=== PATIENT | female | born 1990 | race African-American/Black ===

== ENCOUNTER 2024-04-06 12:18 | Emergency (ER) | payer MEDICAID, SELFPAY ==
--- NOTE | 2024-04-06 12:21 | ED_ITS ---
HPI - General Adult General Chief complaint: Recheck/Abnormal Lab/Rx Stated complaint: abnormal lab sickle cell Related Data Allergies Allergy/AdvReac Type Severity Reaction Status Date / Time No Known Allergies Allergy Verified 04/06/24 12:25 [facility] Social History Social History Advance Directives: No Advance Directives Information Provided: No Physical Exam ED Vital Signs: Vital Signs - 24 hr 04/06/24 12:25 Temperature 98.9 F Pulse Rate 76 Respiratory Rate 16 Blood Pressure 114/72 Pulse Oximetry 97 Oxygen Delivery Method Room Air BMI result Body Mass Index 21.9 Course Course Course Narrative: This is a Rapid Medical Examination (RME) performed by Keren Reeder PA-C in triage. Full HPI, ROS, assessment and treatment plan per primary provider in the Main ED. 34 yo lithuanian speaking female herefor abnormal labs. PCP sent for blood work yesterday. she was contact with results of anemia and was advised to come to the ED. hx of sickle cell anemia. he told me my red cells are . no complaints at present. she is well appearing. abd soft/ nd/nt. no pallor noted. Plan: labs, type and screen ordered Reevaluation(s) Reevaluation #1: Patient left the ED without completing treatment. Medical Decision Making Lab Data 04/06/24 12:49 04/06/24 12:49 Labs: Lab Results 04/06/24 Range/Units 12:49 WBC 7.1 (4.8-10.8) X10*3/uL RBC 2.86 L (4.20-5.50) X10*6/uL Hgb 9.8 L (12.0-16.0) g/dl Hct 26.4 L (37.0-47.0) % MCV 92.3 (80.0-98.0) fL MCH 34.3 H (27.0-33.0) pg MCHC 37.1 H (31.0-35.0) g/dl RDW 15.9 (11.0-16.0) % Plt Count 241 (160-400) X10*3/uL MPV 11.5 (9.4-12.3) fL Immature Gran % (Auto) Cancelled Neut % (Auto) Cancelled Lymph % (Auto) Cancelled Carver % (Auto) Cancelled Eos % (Auto) Cancelled Baso % (Auto) Cancelled Lymph # (Auto) Cancelled Carver # (Auto) Cancelled Eos # (Auto) Cancelled Baso # (Auto) Cancelled Abs Immat Gran (auto) Cancelled Absolute Neuts (auto) Cancelled Absolute Nucleated RBC 0.120 H (0.0-0.012) X10*3/uL Nucleated RBC % (auto) 1.7 H (0.0-0.2) /100WBC Neutrophils % (Manual) 41 L (45-73) % Band Neutrophils % 0 L (3-5) % Lymphocytes % (Manual) 52 H (20-40) % Monocytes % (Manual) 5 (2-11) % Eosinophils % (Manual) 1 (0-4) % Basophils % (Manual) 1 (0-2) % Abs Neuts (Manual) 2.9 (2.0-8.3) X10*3/uL Lymphocytes # (Manual) 3.7 (1.2-4.9) X10*3/uL Monocytes # (Manual) 0.4 (0.1-1.2) X10*3/uL Eosinophils # (Manual) 0.1 (0.0-0.4) X10*3/uL Basophils # (Manual) 0.1 (0.0-0.2) X10*3/uL Nucleated RBCs 4 H (0-0) /100WBC Platelet Estimate NORMAL (NORMAL) Large Platelets PRESENT Plt Morphology Comment NOTED RBC Morphology NOTED Polychromasia 1+ (0-2) /OIF Macrocytosis 1+ (5-14) /OIF Sickle Cells 3+ (>5) /OIF Target Cells 1+ (5-14) /OIF Schistocytes 1+ (0-2) /OIF Absolute Retic 0.240 H (0.026-0.095) X10*6/uL Percent Retic 8.7 H (0.5-1.8) % Immature Retic Fraction 24.9 H (3.0-15.9) % Retic Hgb Equivalent 31.9 (30.0-35.0) pg Sodium 139 (135-145) mmol/L Potassium 4.9 (3.3-5.1) mmol/L Chloride 109 H (96-108) mmol/L Carbon Dioxide 21 L (22-29) mmol/L Anion Gap 14 (12-20) BUN 7 L (9-16) mg/dL Creatinine 0.66 (0.5-1.4) mg/dL Estim Creat Clear Calc 107.0 Estimated GFR > 60 Random Glucose 96 (60-115) mg/dL Calcium 9.6 (8.4-10.2) mg/dL Magnesium 1.8 (1.6-2.6) mg/dL Total Bilirubin 2.2 H (0.0-1.0) mg/dL AST 54 H (5-31) U/L ALT 47 H (0-31) U/L Alkaline Phosphatase 131 H (39-117) U/L Total Protein 8.1 H (6.5-8.0) g/dL Albumin 4.3 (3.5-5.0) g/dL Lipase 24 (8-78) U/L Discharge Plan Discharge Clinical Impression: Abnormal laboratory test result Patient Disposition: Left W/O Completing Treatment Discharge Date/Time: 04/06/24 23:47
[2024-04-06 12:25] VITALS: BP 114/72; PULSE 76; RESP 16; TEMP 37.2; O2SAT 97; BMI 21.9
[2024-04-06 12:59] LABS: Hematocrit 26.4 % (37.0-47.0); Hemoglobin 9.8 g/dl (12.0-16.0); Mean Corpuscular HGB Conc 37.1 g/dl (31.0-35.0); Mean Corpuscular Hemoglobin 34.3 pg (27.0-33.0); Mean Corpuscular Volume 92.3 fL (80.0-98.0); Mean Platelet Volume 11.5 fL (9.4-12.3); Platelet Count 241 X10*3/uL (160-400); Red Blood Count 2.86 X10*6/uL (4.20-5.50); Red Cell Distribution Width 15.9 % (11.0-16.0)
[2024-04-06 13:00] LABS: NRBC Pct Auto 1.7 /100WBC (0.0-0.2); WBC ABN SCTR FOR CBC 1; White Blood Count 7.1 X10*3/uL (4.8-10.8)
[2024-04-06 13:20] LABS: Alanine Aminotransferase 47 U/L (0-31); Albumin Level 4.3 g/dL (3.5-5.0); Alkaline Phosphatase 131 U/L (39-117); Anion Gap 14 (12-20); Aspartate Amino Transferase 54 U/L (5-31); Bilirubin Total 2.2 mg/dL (0.0-1.0); Blood Urea Nitrogen 7 mg/dL (9-16); Calcium 9.6 mg/dL (8.4-10.2); Carbon Dioxide 21 mmol/L (22-29); Chloride 109 mmol/L (96-108); Estimated Glomerular Filt Rate > 60; Glucose Random 96 mg/dL (60-115); Lipase 24 U/L (8-78); Magnesium 1.8 mg/dL (1.6-2.6); Potassium 4.9 mmol/L (3.3-5.1); Sodium 139 mmol/L (135-145); Total Protein 8.1 g/dL (6.5-8.0)
[2024-04-06 13:33] LABS: Basophils Abs Manual 0.1 X10*3/uL (0.0-0.2); Basophils Percent Manual 1 % (0-2); Eosinophils Absolute Manual 0.1 X10*3/uL (0.0-0.4); Eosinophils Percent Manual 1 % (0-4); Lymphocytes Absolute Manual 3.7 X10*3/uL (1.2-4.9); Lymphocytes Percent Manual 52 % (20-40); Monocytes Absolute Manual 0.4 X10*3/uL (0.1-1.2); Monocytes Percent Manual 5 % (2-11); Neutrophils Percent Manual 41 % (45-73); Nucleated Red Blood Cells 4 /100WBC (0-0)
[2024-04-06 13:34] LABS: Macrocytosis 1+ (5-14) /OIF; RBC Morphology NOTED
[2024-04-06 13:37] LABS: Polychromasia 1+ (0-2) /OIF; Target Cells 1+ (5-14) /OIF
[2024-04-06 13:42] LABS: Large Platelet PRESENT; Platelet Estimate NORMAL (NORMAL); Platelet Morphology Comment NOTED
[2024-04-06 13:43] LABS: Schistocytes 1+ (0-2) /OIF; Sickle Cells 3+ (>5) /OIF
[2024-04-06 14:02] LABS: Immature Retic Fraction 24.9 % (3.0-15.9); Retic HGB Equivalent 31.9 pg (30.0-35.0); Reticulocyte Percent 8.7 % (0.5-1.8)
[2024-04-06 14:18] LABS: Band Neutrophils Percent 0 % (3-5); Neutrophils Absolute Manual 2.9 X10*3/uL (2.0-8.3)
--- NOTE | 2024-04-06 20:28 | PC.NURSE ---
Pt not present in [facility] when called for reassessment.
== END 2024-04-06 23:47 | disposition left against medical advice (07) ==
LOC: HO.ED 23:43
PROVIDERS: Physician Assistant Medical; Emergency Provider Emergency Medicine
DX: R79.9 Abnormal finding of blood chemistry, unspecified (principal)
CPT/HCPCS: 36415; 80053; 83690; 83735; 85007; 85025; 85027; 85045; 99282; 99283

== ENCOUNTER 2024-04-27 19:06 | Outpatient (REF) | payer OTHER, SELFPAY ==
[2024-04-30 03:49] LABS: HPV mRNA E6/E7 rflx Not Detected (Not Detected)
== END 2024-04-27 19:07 | disposition home or self-care (01) ==
LOC: HO.LNP 19:06
PROVIDERS: Visit Provider Advanced Practice Midwife
DX: N63.12 Unspecified lump in the right breast, upper inner quadrant (principal); Z12.4 Encounter for screening for malignant neoplasm of cervix
CPT/HCPCS: 87624; 88142

== ENCOUNTER 2024-04-29 09:50 | Outpatient (REF) | payer OTHER, SELFPAY ==
[2024-04-30 07:34] LABS: Prolactin 13.4 ng/mL
== END 2024-04-29 09:51 | disposition home or self-care (01) ==
LOC: HO.HHCL 09:50
PROVIDERS: Visit Provider Advanced Practice Midwife
DX: N91.5 Oligomenorrhea, unspecified (principal)
CPT/HCPCS: 36415; 84146

== ENCOUNTER 2024-07-20 16:46 | Outpatient (REF) | payer OTHER, SELFPAY ==
[2024-07-21 06:15] LABS: CT PCR NOT DETECTED (Not Detect.); NG PCR NOT DETECTED (Not Detect.)
[2024-07-21 10:31] LABS: Bacterial Vaginosis PCR NEGATIVE (Negative); Candida Group PCR DETECTED (Not Detect); Candida glab krusei PCR NOT DETECTED (Not Detect); Trichomonas vaginalis PCR NOT DETECTED (Not Detect)
== END 2024-07-20 16:47 | disposition home or self-care (01) ==
LOC: HO.HHCLNP 16:46
PROVIDERS: Visit Provider Advanced Practice Midwife
DX: Z11.3 Encounter for screening for infections with a predominantly sexual mode of transmission (principal)
CPT/HCPCS: 0352U; 87491; 87591

== ENCOUNTER 2025-02-25 17:52 | Outpatient (REF) | payer MEDICAID, SELFPAY ==
--- OUTSIDE RECORDS SUMMARY | 2025-02-25 17:54 | XMS_ITS | Clinical Summary ---
Author Organization [facility] Address [address] [place] [address] Care Team Providers Care Buyer Agent Name Role Phone Madelaine Dill NP Primary Care Provider [phone] Allergies No known active allergies Medications Medication Sig Dispensed Refills Start Date End Date Status Ventolin HFA 108 (90 Base) MCG/ACT inhaler 2 puffs every 6 (six) hours as needed. for wheezing or SOB 0 04/01/2024 Active ergocalciferol (VITAMIN D2) capsule 23769 units Take 1 capsule (50,000 Units total) by mouth once a week. 0 04/15/2024 Active folic acid (FOLVITE) tablet 1 mg Take 1 tablet (1,000 mcg total) by mouth daily. 0 04/01/2024 Active hydroxyurea (HYDREA) 500 MG capsule TAKE 3 CAPSULES BY MOUTH EVERY DAY AT THE SAME TIME 0 04/01/2024 Active loratadine (CLARITIN) 10 MG tablet Take 1 tablet (10 mg total) by mouth daily. 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 Social History Tobacco Use Types Packs/Day Years Used Date Smoking Tobacco: Former Cigarettes Q uit: 2013 Smokeless Tobacco: Never Tobacco Cessation:Counseling Given: Not Answered Alcohol Use Standard Drinks/Week Comments Yes 0 (1 standard drink = 0.6 oz pur e alcohol) only occasional Sex and Gender Information Value Date Recorded Sex Assigned at Female 04/20/2024 1:35 PM EDT Gender Identity Not on file Sexual Orientation Not on file Job Start Date Occupation Industry Not on file Not on file Not on file Last Filed Vital Signs Vital Sign Reading Time Taken Comments Blood Pressure 127/77 08/17/2024 11:22 AM EDT Pulse 79 08/17/2024 11:22 AM EDT Temperature 36.9 ??C (98.4 ??F) 08/17/2024 11:22 AM E DT Respiratory Rate - - Oxygen Saturation 98% 08/17/2024 11:22 AM EDT Inhaled Oxygen Concentration - - Weight 61.5 kg (135 lb 9.6 oz) 08/17/2024 11:22 AM EDT Height 171.5 cm (5' 7.5 ) 08/17/2024 11:22 AM ED T Body Mass Index 20.92 08/17/2024 11:22 AM EDT Plan of Treatment Health Maintenance Due Date Last Done Comments Hepatitis C Screening 1989 COVID-19 Vaccine (#1) 1989 Depression Screening 2001 Preventative Health Evaluation 2007 DTap / Tdap / Td (1 - Tdap) 01/24/2008 Cervical Cancer Screening (Pap Smear) 2010 Influenza Vaccine (#1) 2024 Hepatitis B Vaccines (3 of 3 - 19+ 3-dose series) 10/14/2024 08/05/2024, 04/13/2024 Pneumococcal Vaccine Completed 04/13/2024 RSV Ped < 20 months Aged Out No longe r eligible based on patient's age to complete this topic Care Teams Buyer Agent Relationship Specialty Start Date End Date Madelaine Dill NP [address] [place] [address] PCP - General Nurse Practitioner 04/20/24
[2025-02-26 10:54] LABS: Bacterial Vaginosis PCR NEGATIVE (Negative); Candida Group PCR NOT DETECTED (Not Detect); Candida glab krusei PCR NOT DETECTED (Not Detect); Trichomonas vaginalis PCR NOT DETECTED (Not Detect)
[2025-02-26 11:26] LABS: CT PCR NOT DETECTED (Not Detect.); NG PCR NOT DETECTED (Not Detect.)
== END 2025-02-25 17:53 | disposition home or self-care (01) ==
LOC: HO.HHCLNP 17:52
PROVIDERS: Visit Provider Internal Medicine
DX: N93.8 Other specified abnormal uterine and vaginal bleeding (principal)
CPT/HCPCS: 81515; 87491; 87591

== ENCOUNTER 2025-03-14 12:49 | Outpatient (REF) | payer MEDICAID, SELFPAY ==
--- OUTSIDE RECORDS SUMMARY | 2025-03-14 15:11 | XMS_ITS | Encounter Summary ---
Author Organization [employer] Address [address] [place] [address] [address] [place] [address] Care Team Providers Care Television Specialist Name Role Phone Cortney Quintana MD Primary Care Provider + Rajan Jara RN Unavailable Reason for Visit * Reason Comments bodyaches Encounter Details Date Type Department Care Team ([facility] st Contact Info) Description 03/14/2025 1:15 PM EDT Office Visit [facility] MEDICINE [address] [place], [place] [phone] [facility] [address] [place] [address] Sickle cell crisis (CMS/HCC) (Primary Dx) Social History Tobacco Use Types Packs/Day Years Used Date Smoking Tobacco: Never Passive Smoke Exposure: Never Smokeless Tobacco: Never Alcohol Use Standard Drinks/Week Comments Never 0 (1 standard drink = 0.6 oz pur e alcohol) Depression Answer Date Recorded Patient Health Questionnaire-9 Score 0 08/05/2024 Patient Health Questionnaire-9 Score 0 08/05/2024 Last PHQ-9: Questionnaire Data Not on file 0 08/05/2024 Housing Stability Answer Date Recorded What is your housing situation today? I have shawn esat 02/16/[address] you li ve. Do you have problems with any of the following? None of the above 02/16/2025 Food Insecurity Answer Date Recorded Within the past 12 months, y ou worried that your food would run out before you got money to buy more: Sometimes True 2024 Within the past 12 months,th e food you bought just didn't last and you didn't have enough money to get more: Sometimes True 02/16/2025 Transportation Answer Date Recorded In the past 12 months, has l ack of transportation kept you from medical appts, meetings, work or from getting things needed for daily living? Yes, it has kept me from non-medical meetings, work, or getting things that I need 02/16/2025 Utilities Answer Date Recorded In the past 12 months, has t he electric, gas, oil or water company threatened to shut off services in your home? No 04/13/2024 Depression Answer Date Recorded Patient Health Questionnaire-2 Score 0 08/05/2024 Internet Access Answer Date Recorded Internet Access Q1 Yes 02/16/2025 Internet Access Q2 Not on file 02/16/2025 Comments No Sex and Gender Information Value Date Recorded Sex Assigned at Female 04/06/2024 11:46 AM EDT Legal Sex Female 2:23 PM EDT Gender Identity Female 04/06/2024 11:46 AM EDT Sexual Orientation Straight 04/06/2024 11 :46 AM EDT documented as of this encounter Last Filed Vital Signs Vital Sign Reading Time Taken Comments Blood Pressure 143/78 03/14/2025 12:01 PM EDT Pulse 68 03/14/2025 12:01 PM EDT Temperature 37.1 ??C (98.8 ??F) 03/14/2025 12:01 PM E DT Respiratory Rate 20 03/14/2025 12:01 PM EDT Oxygen Saturation 100% 03/14/2025 12:01 PM EDT Inhaled Oxygen Concentration - - Weight 61.7 kg (136 lb) 03/14/2025 12:01 PM EDT Height 170.2 cm (5' 7 ) 03/14/2025 12:01 PM EDT Body Mass Index 21.3 03/14/2025 12:01 PM EDT documented in this encounter Plan of Treatment Upcoming Encounters Date Type Department Care Team (Late st Contact Info) Description 04/14/2025 12:15 PM EDT Office Visit [facility] MEDICINE [address] [place] [id number] Cortney Quintana MD [address] [place] [address] 04/26/2025 11:00 AM EDT Office Visit [facility] MEDICINE [address] [place] [phone], [facility] [address] [facility] [place] [phone] 04/29/2025 10:45 AM EDT Office Visit [facility] [address] [facility] [place] [phone] Jc Martell MD [address], [place] [phone] Scheduled Orders Name Type Priority Associated Diagnoses Orde r Schedule CBC auto differential Lab Routine Sickle cell crisis ([facility]/HCC) Expected: 03/14/2025 (Approximate), Expires: 03/14/2026 Comprehensive Metabolic Panel Lab Routine Sickle cell crisis ([facility]/HCC) Expected: 03/14/2025 (Approximate), Expires: 03/14/2026 documented as of this encounter Procedures Procedure Name Priority Date/Time Associated Diagnosis Comments POCT RAPID COVID ANTIGEN Routine 03/14/2025 1:10 PM EDT Sickle cell crisis ([facility]/HCC) POCT INFLUENZA B Routine 03/14/2025 1:10 PM EDT Sickle cell crisis ([facility]/HCC) POCT INFLUENZA A Routine 03/14/2025 1:10 PM EDT Sickle cell crisis ([facility]/HCC) documented in this encounter Results * POCT Rapid Influenza A OSOM (03/14/2025 1:10 PM EDT) Rapid Influenza A Ag Negative Negative, Indeterminate Swab Nasopharyngeal structure / Unknown 03/14/2025 1:10 PM EDT [facility] PRODUCTION SUPPORT SUPERVISOR POINT OF CARE TEST ENTER/EDIT ORDERABLES Final Result * POCT Rapid Influenza B OSOM (03/14/2025 1:10 PM EDT) Rapid Influenza B Ag Negative Negative, Indeterminate Swab 03/14/2025 1:10 PM EDT [facility] PRODUCTION SUPPORT SUPERVISOR POINT OF CARE TEST ENTER/EDIT ORDERABLES Final Result * POCT Rapid Covid-19 BinaxNOW (03/14/2025 1:10 PM EDT) Rapid COVID Ag Negative Swab 03/14/2025 1:10 PM EDT [facility] PRODUCTION SUPPORT SUPERVISOR POINT OF CARE TEST ENTER/EDIT ORDERABLES Final Result documented in this encounter Visit Diagnoses Diagnosis Sickle cell crisis (CMS/HCC)- Primary Hb-SS disease with crisis documented in this encounter Additional Health Concerns Assessment Noted Time PHQ-9 Depression Total Score: 0 08/05/20 9:59 AM EDT documented as of this encounter Care Teams Television Specialist Relationship Specialty Start Date End Date Cortney Quintana MD [address] [place] [id number] PCP - General Internal Medicine 04/13/24 Rajan Jara RN [address] [place] [id number] [employer] Equipment OperatorMedical Office Representative 04/05/24 Zeenat Peterson Community Health Worker Case Management 04/16/24 documented as of this encounter
--- OUTSIDE RECORDS SUMMARY | 2025-03-14 15:11 | XMS_ITS | Clinical Summary ---
Author Organization [employer] Address [address] [facility] [address] [place] [address] Care Team Providers Care College Advisor Name Role Phone Cortney Quintana MD Primary Care Provider + Rajan Jara RN Unavailable [phone] Allergies No known active allergies Medications albuterol 108 (90 Base) MCG/ACT inhalerIndicati ons:Wheezing Inhale 2 puffs every 6 (six) hours if needed for wheezing or shortness of breath. 18 g 4 Active loratadine (Claritin) 10 MG tablet Take 1 tablet (10 mg) by mouth Once per day. 30 tablet 3 4 Active spironolactone (Aldactone) 100 MG tablet Take 1 tablet (100 mg) by mouth Once per day. 30 tablet 11 4 07/02/20 25 Active tretinoin (Retin-A) 0.05 % cream Apply topically at bedtime. 20 g 2 4 07/02/20 25 Active folic acid (Folvite) 1 MG tabletIndicatio ns:Sickle cell disease without crisis (CMS/HCC) Take 1 tablet (1 mg) by mouth Once per day. 90 tablet 3 4 08/05/20 25 Active clotrimazole-be tamethasone (Lotrisone) cream Apply topically 2 times daily for 28 days. 30 g 5 03/25/20 25 Active hydroxyurea (Hydrea) 500 MG capsule Take 3 capsules (1,500 mg total) by mouth Once per day. Take at the same time each day. 90 capsule 1 5 11/22/19 26 Active oxyCODONE (Roxicodone) 5 MG immediate release tabletIndicatio ns:Sickle cell crisis (CMS/HCC) Take 1 tablet (5 mg) by mouth every 6 (six) hours if needed for severe pain for up to 5 days. 20 tablet 5 03/19/20 25 Active fluconazole (Diflucan) 150 MG tablet Take 1 tablet (150 mg) by mouth 1 (one) time for 1 dose. 1 tablet 5 02/26/20 25 Active Problems Problem Noted Date Diagnosed Date Vaginal pruritus 02/25/2025 Assessment & Plan (02/25/2025 4:10 PM EDT): Most likely Deedee infection. Rx fluconazole tabs x 1 dose plus clotrimazole cream to vulvar area only twice daily x 1 week Ordered vaginal swab and follow-up results Patient will use nonlatex condoms follow-up with me as needed DUB (dysfunctional uterine bleeding) 11/04/2024 Assessment & Plan (02/25/2025 4:08 PM EDT): Improved. She is now Nexplanon Follow-up with FUEL ATTENDANT next year Assessment & Plan (11/04/2024 12:59 PM EST): Most likely related to miscarriage/first trimester bleeding, see above. TB lung, latent 08/05/2024 Assessment & Plan (08/05/2024 10:56 AM EDT): Unclear if related to BCG vaccine vs TB. Order CXR and repeat T-Spot. Pt will ask her parents if she received BCG. Mild intermittent asthma without complication Assessment & Plan (08/05/2024 10:56 AM EDT): New onset, see PFTs. See above. Acne vulgaris 04/15/2024 Assessment & Plan (02/25/2025 4:09 PM EDT): Reminded to take spironolactone and use Retin A gel daily Will schedule follow-up with dermatology LANDEROS (dyspnea on exertion) 04/13/2024 Assessment & Plan (08/05/2024 10:55 AM EDT): Most likely related to asthma, she must have some compliment of sickle cell lung. Continue Albuterol prn. Agreed to have influenza immunization, advised to have Covid vaccine at nearest pharmacy. Will start PCV at next appt. Assessment & Plan (04/13/2024 4:24 PM EDT): - could be related to sickle cell crisis - r/o asthma or other PFT - continue Albuterol PRN for now, red flag symptoms dicussed with pt including severe SOB, fever, CP Housing instability, housed, homelessness in pas t 12 months 04/13/2024 Assessment & Plan (04/13/2024 4:25 PM EDT): - currently living [place] [facility] with 9 year old daughter - gave her information about [employer] - will have piano case maker reach out to her to help with housing/job applications Decreased vision in both eyes 04/13/2024 Assessment & Plan (04/13/2024 4:21 PM EDT): - pt agreed to be referred to ophthalmology Sickle cell anemia 04/01/2024 Overview (04/13/2024): Hb electrophoresis 03/2024 Hydroxyurea 500mg 3 capsules once daily plus folic acid. Referred to Heme 04/01/24 Assessment & Plan (02/25/2025 4:14 PM EDT): Doing well on hydroxyurea and folic acid, refill sent to pharmacy Follow-up with hematology once per year Advised to bring immunization card, she reportedly had all her immunizations UTD, meningococcal, haemophilus and pneumococcal vaccines are pending on the record Assessment & Plan (08/05/2024 10:57 AM EDT): HB and Bilis remains stables. Continue Hydroxyurea 500 mg TID. Follow up with Hematology next month. Assessment & Plan (04/13/2024 4:24 PM EDT): - continue Hydroxyurea + Folic acid - check CVC and LFT's today - refer to hematology - PCV 20 + Hep B started today Anemia 04/01/2024 Assessment & Plan (11/04/2024 1:01 PM EST): Worsening, likely as result of new . Pt to be seen in the ED. FU with me in 3-4 weeks. Pt will need to have Covid, PCV, and Meningococcal immunizations, will obtain record from previous PCP. Blurry vision, bilateral 04/01/2024 Resolved Problems Problem Noted Date Diagnosed Date Resolved Date Positive test 11/04/202402/15 Assessment & Plan (11/04/2024 12:59 PM EST): Looks like pt is miscarrying/first trimester bleeding. She does not want to keep the , she was using condom at time of intercourse. We discuss about diagnosis, the importance of being seen in the ED [facility] and/or at [facility], refer for further management. I gave her information of PP and she will go there once she picks up her daughter from school. FU with me in 3-4 weeks. Encounters Date Type Department Care Team Description 03/14/2025 1:15 PM EDT Office Visit [facility] [address] [place] [address] [phone] [facility] Sickle cell crisis (CMS/HCC) (Primary Dx) 03/01/[address] [phone] Cortney Quintana MD 02/28/2025 Telephone [facility] [address] [place] [phone] Cortney Quintana MD 02/25/2025 12:15 PM EDT Office Visit [address] [address] Cortney Quintana MD DUB (dysfunctional uterine bleeding) (Primary Dx); Acne vulgaris; Vaginal pruritus; Sickle cell disease without crisis (CMS/HCC) 02/25/2025 Travel 02/23/[address] [address] Cortney Quintana MD Chart prep 02/16/2025 Patient Outreach [facility] [address] [place] [address] Cortney Quintana MD Care Coordination (CHW outreach for SDOH PT-1 and food needs-referral completed /) 02/16/2025 Patient Outreach [facility] [address] [place] [address] Cortney Quintana MD 01/28/2025 Population Health Risk Score [facility] ([facility] Department [address] [place] [phone] Provider, Population Health Generic 12/24/2024 Telephone [facility] [address] [place] [address] Kamryn Bang MA Chart prep from Last 3 Months Immunizations Name Administration Dates Next Due Hep B, adult 08/05/2024,04/13/2024 Influenza, seasonal, injectable, preservative fr ee 08/05/2024 Pneumococcal Conjugate PCV 20 04/13/2024 Family History Medical History Relation Name Comments Sickle cell anemia Brother Sickle cell anemia Father Sickle cell anemia Mother Relation Name Status Comments Brother Father Mother Social History Tobacco Use Types Packs/Day Years Used Date Smoking Tobacco: Never Passive Smoke Exposure: Never Smokeless Tobacco: Never Tobacco Cessation:Counseling Given: Not Answered Alcohol Use Standard Drinks/Week Comments Never 0 (1 standard drink = 0.6 oz pur e alcohol) Depression Answer Date Recorded Patient Health Questionnaire-9 Score 0 08/05/2024 Patient Health Questionnaire-9 Score 0 08/05/2024 Last PHQ-9: Questionnaire Data Not on file 0 08/05/2024 Housing Stability Answer Date Recorded What is your housing situation today? I have [facility] 02/16/[address] you li [...] Orientation Straight 04/06/2024 11 :46 AM EDT Last Filed Vital Signs Vital Sign Reading [...] Mass Index 21.3 03/14/2025 12:01 PM EDT Plan of Treatment Upcoming Encounters Date Type Department Care Team (Late st Contact Info) Description 04/14/2025 12:15 PM EDT Office Visit [facility] [address] [place] [address] [phone] Cortney Quintana MD [address] [place] [phone] 04/26/2025 11:00 AM EDT Office Visit [facility] [address] [place] [phone] Aniket Hassan CNM [address] [place] [address] 04/29/2025 10:45 AM EDT Office Visit [facility] [address] [place], [place] [phone] Jc Martell MD [address] [place] [address] Health Maintenance Due Date Last Done Comments HIB Vaccines (1 of 1 - Risk 1-dose series) 04/25/1990 Meningococcal Vaccine (1 - Risk 2-dose series) 1991 Meningococcal B Vaccine (1 o f 4 - Increased Risk) 1999 DTaP/Tdap/Td Vaccines (1 - Tdap) 01/24/2008 COVID-19 Vaccine ( - 2023-2 5 season) 2024 Hepatitis B Vaccines (3 of 3 - 19+ 3-dose series) 10/14/2024 08/05/2024, 04/13/2024 Family Planning (PISQ) 07/20/2025 07/20/2024 Alcohol/Substance Use Screening 08/05/2025 08/05/2024 Depression Screening 08/05/2025 08/05/2024, 08/05/2024 SDOH Screening 02/16/2026 02/16/2025 Tobacco Screening 02/25/2026 02/25/2025 Cervical Cancer Screening 04/27/2029 HPV/Cotest 04/27/2029 04/27/2024 Pap Smear 04/27/2029 04/27/2024 Zoster Vaccines (1 of 2) 2039 RSV Patients and Patients Aged 60 years or older (1 - 1-dose 75+ series) 01/24/2064 HIV Screening Completed 04/02/2024 Hepatitis C Screening Completed 04/02/2024 Pneumococcal Vaccine: Pediatrics (0 to 5 Years) and At-Risk Patients (6 to 49) Years) Completed 04/13/2024 Influenza Vaccine Completed 08/05/2024 HPV Vaccines Aged Out No longer eligi ble based on patient's age to complete this topic Hepatitis A Vaccines Aged Out No long er eligible based on patient's age to complete this topic IPV Vaccines Aged Out No longer eligi ble based on patient's age to complete this topic RSV under 20 months Aged Out No longe r eligible based on patient's age to complete this topic Rotavirus Vaccines Aged Out No longer eligible based on patient's age to complete this topic Procedures Procedure Name Priority Date/Time Associated Diagnosis Comments POCT INFLUENZA A Routine 03/14/2025 1:10 PM EDT Sickle cell crisis ([facility]) POCT INFLUENZA B Routine 03/14/2025 1:10 PM EDT Sickle cell crisis ([facility]) POCT RAPID COVID ANTIGEN Routine 03/14/2025 1:10 PM EDT Sickle cell crisis ([facility]) CHLAMYDIA/N. GONORRHOEAE RNA, TMA, UROGENITAL Routine 02/25/2025 1:23 PM EDT DUB (dysfunctional uterine bleeding) BACTERIAL VAGINOSIS PANEL Routine 02/25/2025 1:23 PM EDT DUB (dysfunctional uterine bleeding) HPV MRNA E6/E7 REFLEX TO HPV 16, 18/45 Routine 04/27/2024 7:06 PM EDT PAP SMEAR Routine 04/27/2024 2:31 PM EDT Cervical cancer screening HEPATITIS PANEL, GENERAL Routine 04/02/2024 10:28 AM EDT Healthcare maintenance HIV 1/2 ANTIGEN/ANTIBODY, FOURTH GENERATION W/RFL Routine 04/02/2024 10:28 AM EDT Healthcare maintenance from Last 3 Months or Most Recently Relevant to Health Maintenance Results * POCT Rapid Covid-19 BinaxNOW (03/14/2025 1:10 PM EDT) Rapid COVID Ag Negative Swab 03/14/2025 1:10 PM EDT [facility] POINT OF CARE TEST ENTER/EDIT ORDERABLES Final Result * POCT Rapid Influenza B OSOM (03/14/2025 1:10 PM EDT) [facility] Rapid Influenza B Ag Negative Negative, Indeterminate Swab 03/14/2025 1:10 PM EDT [facility] POINT OF CARE TEST ENTER/EDIT ORDERABLES Final Result * POCT Rapid Influenza A OSOM (03/14/2025 1:10 PM EDT) [facility] Rapid Influenza A Ag Negative Negative, Indeterminate Swab Nasopharyngeal structure / Unknown 03/14/2025 1:10 PM EDT [facility] POINT OF CARE TEST ENTER/EDIT ORDERABLES Final Result * Bacterial Vaginosis (02/25/2025 1:23 PM EDT) [facility] TRICHOMONAS VAGINALIS DETECTION BY PCR NOT DETECTED Not Detect [facility] BACTERIAL VAGINOSIS DETECTION BY PCR NEGATIVE Negative [facility] Comment:The BV organism targ ets of the Xpert Xpress MVP test can becommensal in women; Xpert Xpress MVP positive results forbacterial vaginosis should be considered in conjunction withother clinical and patient information to determine thedisease status. Organisms that are not detected by the XpertXpress MVP test have also been reported to be associatedwith BV and aerobic vaginitis.The Xpert Xpress MVP test performance has not been evaluatedin patients under the age of 14. DEEDEE GROUP DETECTION BY PCR NOT DETECTED Not Detect [facility] Deedee glab krusei PCR NOT DETECTED Not Detect [facility] Swab Vaginal structure / Unknown 02/25/2025 1:23 PM EDT 02/25/2025 5:53 PM EDT Cortney Quintana MD LAB MICROBIOLOGY - GENER AL ORDERABLES Final Result [facility] [address] [place] [address] [phone] * Chlamydia/N. Gonorrhoeae RNA, TMA, Urogenitial (02/25/2025 1:23 PM EDT) CT PCR NOT DETECTED Not Detect. [facility] Comment:A not detected test result does not exclude the possibilityof infection because test results can be affected byimproper specimen collection, concurrent antibiotic therapy,or the number of organisms in the specimen which may bebelow the sensitivity of the test. As with many diagnostictests, results from the Xpert CT/NG assay should beinterpreted in conjunction with other laboratory andclinical data available to the clinician.Xpert CT/NG performance has not been evaluated in patientsless than 14 years of age. The assay should not be used forthe evaluationof suspected sexual abuse or for other medico-legalindications. Additional testing is recommended in anycircumstance when false positive or false negative resultscould lead to adverse medical, social or psychologicalconsequences. NG PCR NOT DETECTED Not Detect. [facility] Comment:A not detected test result does not exclude the possibilityof infection because test results can be affected byimproper specimen collection, concurrent antibiotic therapy,or the number of organisms in the specimen which may bebelow the sensitivity of the test. As with many diagnostictests, results from the Xpert CT/NG assay should beinterpreted in conjunction with other laboratory andclinical data available to the clinician.Xpert CT/NG performance has not been evaluated in patientsless than 14 years of age. The assay should not be used forthe evaluationof suspected sexual abuse or for other medico-legalindications. Additional testing is recommended in anycircumstance when false positive or false negative resultscould lead to adverse medical, social or psychologicalconsequences. Swab Vaginal structure / Unknown 02/25/2025 1:23 PM EDT 02/25/2025 5:53 PM EDT Narrative [facility] - 02/26/2025 11:26 AM EDT Vaginal us Cortney Quintana MD LAB MICROBIOLOGY - GENER AL ORDERABLES Final Result Performing Organization Address [facility]/ZIP Co de Phone Number [facility] [address] [place] [address] [phone] * HPV mRNA E6/E7 w/Reflex to HPV Genotypes 16, 18/45 (04/27/2024 7:06 PM EDT) HPV nRNA E6/E7 Not Detected Not Detected [facility] Comment:Methodology: Transcr iption-Mediated AmplificationThis assay detects E6/E7 viral messenger RNA (mRNA) from 14high-risk HPV types (16,18,31,33,35,39,45,51,52,56,58,59,66,68).Cervical sources are required for HPV testing.If a vaginal source from a patient who has had atotal hysterectomy with removal of cervix wassubmitted, please contact the testing laboratoryfor alternative testing options.For additional information, please refer tohttp://education.WellDoc/faq/PUT689r1(This link if provided for information/educational purposes only.)THIS TEST WAS PERFORMED AT:[employer] [place] [phone] ESPINOZA MD HPV mRNA E6/E7 [facility] HPV 16 RNA [facility] HPV 18/45 RNA [facility] 04/27/2024 7:06 PM EDT 04/28/2024 10:13 AM EDT Aniket JEAN LAB CYTOLOGY ORDERABLES F inal Result Performing Organization Address [facility]/ZIP Co de Phone Number [facility] [address] [place] [address] [phone] * Pap Smear (04/27/2024 2:31 PM EDT) Swab Cervix uteri structure / Unknown 04/27/2024 2:31 PM EDT 04/28/2024 6:00 AM EDT Narrative [facility] - 05/16/2024 3:50 PM EDT ----- ------- Name: Shannan Rosas ? Age/Sex: 34/F ? : 1990 Unit#: [id number] ?? Attend Dr: ANIKET HASSAN CNM ?Re04/27/24 ?Status: DEP REF ? Location: HO.LNP ?Disch: ? ----- ------- SPEC : [id number] ?RECD: 04/28/24 ? STATUS: ??SOUT ? REQ NUM: [id number] ? ALEXIS: 04/27/24-1430 ? SUBM DR: ANIKET HASSAN CNM ? ENTERED: ??04/28/24-655 ?SP TYPE: Pap Smr ?OTHR : ? ORDERED: ??Pap Smear ? Interpretation ?? Satisfactory for evaluation. ?? Negative for intraepithelial lesion or malignancy. ? HPV mRNA E6/E7: ?NOT DETECTED ? This assay detects E6/E7 viral messenger RNA (mRNA) from 14 high-risk HPV types (16, 18, ?? 31, 33, 35, 39, 45, 51, 52, 56, 58, 59, 66, 68) ? HPV testing performed by [employer], [place], [place]. ??See reference laboratory ?? portion of the EMR for entire report. ?Clinical Information LMP: 04/16/24 Previous PAP test: Unknown date/findings ? Material Received ?? ThinPrep-Cervical ----- ------- Signed (signature on file) Connie Torres Sherif 05/16/24 [id number] ? ----- ------- ? END OF REPORT ? Aniket Maciel [facility] CYTOLOGY ORDERABLES F inal Result Performing Organization Address [facility] Co de Phone Number [facility] [address] [place] [phone] * Hepatitis A,B,C Profile (04/02/2024 10:28 AM EDT) Hepatitis A IgM Nonreactive Nonreactive [facility] Comment:IgM antibodies to CUMMINS V not detected; does not exclude earlyacute or recovered HAV infection. ~Hepatitis B Surface Antibody NONREACTIVE Nonreactive [facility] Comment:Nonreactive: < 8.00 mIU/mL Hepatitis B Core Antibody Nonreactive Nonreactive [facility] Hepatitis C Antibody Nonreactive Nonreactive [facility] Comment:Antibodies to HCV no t detected; does not exclude early acuteHCV infection. Hepatitis B Surface Ag Negative Negative [facility] Blood Venous blood specimen / Unknown 04/02/2024 10:28 AM EDT 04/02/2024 1:09 PM EDT Madelaine Dill [facility] LAB BLOOD ORDERABLES Final Resul t Performing Organization Address [facility] de Phone Number [facility] [address] [place] [phone] * HIV-1/2 Antigen and Antibodies, Fourth Generation, with Reflexes (04/02/2024 10:28 AM EDT) HIV AB/AG Nonreactive Nonreactive [facility] Comment:HIV-1 p24 Ag and/or HIV-1/HIV-2 Ab not detected.A test result that is nonreactive does not exclude thepossibility of exposure to or infection with HIV-1 and/orHIV-2. Nonreactive results in this assay for individualswith prior exposure to HIV-1 and/or HIV-2 may be due toantigen and antibody levels that are below the limit ofdetection of this assay.The [employer] HIV Ag/Ab Combo assay result andsupplemental assay results should be interpreted inconjunction with the patient's clinical presentation,history and other laboratory results. If the results areinconsistent with clinical evidence, additional testing issuggested to confirm the result. Blood Venous blood specimen / Unknown 04/02/2024 10:28 AM EDT 04/02/2024 1:09 PM EDT [facility] LAB BLOOD ORDERABLES Final Resul t [facility] [address] [place] [phone] from Last 3 Months or Most Recently Relevant to Health Maintenance Insurance [facility] C3 Care Teams College Advisor Relationship Specialty Start Date End Date Cortney Quintana MD [address] [place] [phone] PCP - General Internal Medicine 04/13/24 Rajan Jara RN [address] [place] [phone] Waste[employer] Design EngineerDumper Operator 04/05/24 Zeenat Peterson Community Health Worker Case Management 04/16/24
--- OUTSIDE RECORDS SUMMARY | 2025-03-14 15:11 | XMS_ITS | Clinical Summary ---
Author Organization [facility] Address [address] [place] [address] Care Team Providers Care Oil And Gas Field Technician Name Role Phone Madelaine Dill NP Primary Care Provider [phone] Allergies No known active allergies Medications Medication Sig Dispensed Refills Start Date End Date Status Ventolin HFA 108 (90 Base) MCG/ACT inhaler 2 puffs every 6 (six) hours as needed. for wheezing or SOB 0 04/01/2024 Active ergocalciferol (VITAMIN D2) capsule 35327 units Take 1 capsule (50,000 Units total) [...] age to complete this topic Care Teams Oil And Gas Field Technician Relationship Specialty Start Date End Date Madelaine Dill NP [address] [place] [phone] PCP - General Nurse Practitioner 04/20/24
--- OUTSIDE RECORDS SUMMARY | 2025-03-14 15:11 | XMS_ITS | Encounter Summary ---
Author Organization [employer] Address [address] [facility] 7 [place] [address] Care Team Providers Care Manager Of Operations Name Role Phone Cortney Quintana MD Primary Care Provider + Rajan Jara RN Unavailable [phone] Reason for Visit * Reason Onset Date Comments Created in Error 08/18/2024 Encounter Details Date Type Department Care Team ([facility] st Contact Info) Description 08/18/2024 Telephone [facility] MED[facility] [address] [place], [place] [phone] Cortney Quintana MD [address] [place] [address] Created in Error Social History Tobacco Use Types Packs/Day Years [...] What is your housing situation today? I do not have housing (Staying with others, in a hotel, in a senior living, living outside on the street, on a beach, in a car, or in a park 04/30/[address] you li ve. Do you have problems with any of the following? None of the above 04/30/2024 Food Insecurity Answer Date Recorded Within the past 12 months, y ou worried that your food would run out before you got money to buy more: Never True 04/13/2024 Within the past 12 months,th e food you bought just didn't last and you didn't have enough money to get more: Never True Transportation Answer Date Recorded In the past 12 months, has l ack of transportation kept you from medical appts, meetings, work or from getting things needed for daily living? Yes, it has kept me from medical appointments or getting medications. 04/30/2024 Utilities Answer Date Recorded In the past 12 months, has t he electric, gas, oil or water company threatened to shut off services in your home? No 04/13/2024 Depression Answer Date Recorded Patient Health Questionnaire-2 Score 0 08/05/2024 Comments No Sex and Gender Information Value Date Recorded Sex Assigned at Female 04/06/2024 11:46 AM EDT Legal Sex Female 2:23 PM EDT Gender Identity Female 04/06/2024 11:46 AM EDT Sexual Orientation Straight 04/06/2024 11 :46 AM EDT documented as of this encounter Plan of Treatment Upcoming Encounters Date Type Department Care Team (Late st Contact Info) Description 04/14/2025 12:15 PM EDT Office Visit [facility] [address] [place] [phone] Cortney Quintana MD [address] [place] [phone] 04/26/2025 11:00 AM EDT Office Visit [address] CNM [address] [place] [phone] 04/29/2025 10:45 AM EDT Office Visit [address] [address] Jc Martell MD [address] [place] [phone] documented as of this encounter Visit Diagnoses Not on filedocumented in this encounter Additional Health Concerns Assessment Noted Time PHQ-9 Depression Total Score: 0 08/05/20 24 9:59 AM EDT documented as of this encounter Care Teams Manager Of Operations Relationship Specialty Start Date End Date Cortney Quintana MD [address] [place] [address] PCP - General Internal Medicine 04/13/24 Rajan Jara, MICHAELA [address] [place] [address] Relationship BankerSmall Products Assembler 04/05/24 Zeenat Peterson Community Health Worker Case Management 04/16/24 documented as of this encounter
[2025-03-14 16:05] LABS: MANUAL DIFF FLAG NO
[2025-03-14 16:19] LABS: Basophils Percent Auto 0.4 % (0-2); Eosinophils Absolute Auto 0.1 X10*3/uL (0.0-0.4); Eosinophils Percent Auto 0.6 % (0-4); Hematocrit 30.9 % (37.0-47.0); Hemoglobin 11.3 g/dl (12.0-16.0); Imm Gran Abs Auto 0.06 X10*3/uL (0.00-0.03); Imm Gran Pct Auto 0.5 % (0.0-0.4); Lymphocytes Absolute Auto 3.5 X10*3/uL (1.2-4.9); Lymphocytes Percent Auto 31.5 % (20-40); Mean Corpuscular HGB Conc 36.6 g/dl (31.0-35.0); Mean Corpuscular Hemoglobin 34.2 pg (27.0-33.0); Mean Corpuscular Volume 93.6 fL (80.0-98.0); Mean Platelet Volume 12.1 fL (9.4-12.3); Monocytes Absolute Auto 1.5 X10*3/uL (0.1-1.2); NRBC Pct Auto 0.8 /100WBC (0.0-0.2); Platelet Count 320 X10*3/uL (160-400); Red Cell Distribution Width 15.4 % (11.0-16.0); White Blood Count 11.2 X10*3/uL (4.8-10.8)
[2025-03-14 16:47] LABS: Alanine Aminotransferase 46 U/L (0-31); Albumin Level 4.7 g/dL (3.5-5.0); Alkaline Phosphatase 128 U/L (39-117); Anion Gap 13 (12-20); Aspartate Amino Transferase 51 U/L (5-31); Bilirubin Total 2.6 mg/dL (0.0-1.0); Blood Urea Nitrogen 11 mg/dL (9-16); Calcium 9.6 mg/dL (8.4-10.2); Carbon Dioxide 21 mmol/L (22-29); Chloride 109 mmol/L (96-108); Estimated Glomerular Filt Rate > 60; Glucose Random 81 mg/dL (60-115); Potassium 4.1 mmol/L (3.3-5.1); Sodium 139 mmol/L (135-145); Total Protein 8.9 g/dL (6.5-8.0)
== END 2025-03-14 12:50 | disposition home or self-care (01) ==
LOC: HO.HHCL 12:49
PROVIDERS: Visit Provider Registered Nurse
DX: D57.00 Hb-SS disease with crisis, unspecified (principal)
CPT/HCPCS: 36415; 80053; 85025

== ENCOUNTER 2025-04-14 12:47 | Outpatient (REF) | payer MEDICAID, SELFPAY ==
--- OUTSIDE RECORDS SUMMARY | 2025-04-14 12:52 | XMS_ITS | Encounter Summary ---
Author Organization [employer] Address [address] [facility] 7t [place] [address] Care Team Providers Care Industrial Analyst Name Role Phone Cortney Quintana MD Primary Care Provider + Rajan Jara RN Unavailable [phone] Reason for Visit * Reason Onset Date Comments Created in Error 08/18/2024 Encounter Details Date Type Department Care Team ([facility] Contact Info) Description 08/18/2024 Telephone [facility] MEDICINE [address] [place], [place] [phone] Cortney Quintana MD [address] [place], [place] [phone] Created in Error Social History Tobacco Use [...] with others, in a hotel, in a residential, living outside on the street, on a [...] Care Team (Late st Contact Info) Description 04/26/2025 11:00 AM EDT Office Visit [facility] MEDICINE [address] [place] [address] CNM [address] [place] [phone] 04/29/2025 10:45 AM EDT Office Visit [facility] MEDICINE [address] [place] [phone] Jc Martell MD [address] [place] [phone] documented as of this encounter Visit Diagnoses Not on filedocumented in this encounter Additional Health Concerns Assessment Noted Time PHQ-9 Depression Total Score: 0 08/05/20 9:59 AM EDT documented as of this encounter Care Teams Industrial Analyst Relationship Specialty Start Date End Date Cortney Quintana MD [address] [place] [phone] PCP - General Internal Medicine 04/13/24 Rajan Jara RN [address] [place] [address] [place] [id number] WindlasserReclamation Worker 04/05/24 Zeenat Peterson Community Health Worker Case Management 04/16/24 documented as of this encounter
[2025-04-14 16:04] LABS: MANUAL DIFF FLAG NO
[2025-04-14 16:09] LABS: Basophils Absolute Auto 0.1 X10*3/uL (0.0-0.2); Basophils Percent Auto 0.8 % (0-2); Eosinophils Absolute Auto 0.1 X10*3/uL (0.0-0.4); Eosinophils Percent Auto 1.1 % (0-4); Hematocrit 29.1 % (37.0-47.0); Hemoglobin 10.6 g/dl (12.0-16.0); Imm Gran Abs Auto 0.01 X10*3/uL (0.00-0.03); Imm Gran Pct Auto 0.2 % (0.0-0.4); Lymphocytes Absolute Auto 3.1 X10*3/uL (1.2-4.9); Lymphocytes Percent Auto 48.6 % (20-40); Mean Corpuscular HGB Conc 36.4 g/dl (31.0-35.0); Mean Corpuscular Hemoglobin 35.5 pg (27.0-33.0); Mean Corpuscular Volume 97.3 fL (80.0-98.0); Mean Platelet Volume 12.1 fL (9.4-12.3); Monocytes Percent Auto 15.6 % (2-11); NRBC Pct Auto 0.5 /100WBC (0.0-0.2); Neutrophils Absolute Auto 2.1 x10*3/uL (2.0-8.3); Neutrophils Percent Auto 33.7 % (45-73); Platelet Count 274 X10*3/uL (160-400); Red Blood Count 2.99 X10*6/uL (4.20-5.50); Red Cell Distribution Width 14.6 % (11.0-16.0); White Blood Count 6.3 X10*3/uL (4.8-10.8)
[2025-04-14 16:59] LABS: Alanine Aminotransferase 59 U/L (0-31); Albumin Level 4.2 g/dL (3.5-5.0); Alkaline Phosphatase 101 U/L (39-117); Anion Gap 11 (12-20); Aspartate Amino Transferase 57 U/L (5-31); Bilirubin Total 2.1 mg/dL (0.0-1.0); Blood Urea Nitrogen 5 mg/dL (9-16); Calcium 9.2 mg/dL (8.4-10.2); Carbon Dioxide 24 mmol/L (22-29); Chloride 111 mmol/L (96-108); Estimated Glomerular Filt Rate > 60; Glucose Random 81 mg/dL (60-115); Potassium 4.1 mmol/L (3.3-5.1); Sodium 142 mmol/L (135-145); Total Protein 7.5 g/dL (6.5-8.0)
[2025-04-17 18:58] LABS: TS Negative Control Passed; TS Panel A 2; TS Panel B 4; TS Positive Control Passed; TSpotTB Negative (Negative)
== END 2025-04-14 12:48 | disposition home or self-care (01) ==
LOC: HO.HHCL 12:47
PROVIDERS: Visit Provider Internal Medicine
DX: D57.1 Sickle-cell disease without crisis (principal); R06.09 Other forms of dyspnea
CPT/HCPCS: 36415; 80053; 85025; 86481

== ENCOUNTER 2025-06-11 18:49 | Inpatient (IN) | payer MEDICAID, SELFPAY ==
--- NOTE | ~2025-06-11 | XR_ITS ---
CLINICAL HISTORY: sickle cell crisis 2 view chest x-ray Comparison: None provided Findings: No consolidation or effusion. Normal size heart. No acute fracture. IMPRESSION: 1. No acute findings. This document has been electronically signed by: Rosana Shelton MD on 06/11/2025 23:21:55
[2025-06-11 18:55] VITALS: BP 148/76; PULSE 86; RESP 22; TEMP 37.1; O2SAT 96; BMI 25.1
--- NOTE | 2025-06-11 18:58 | ED_ITS ---
HPI - Abdominal Pain General Chief Complaint: General Medical Stated Complaint: lwr abd pain Time Seen by Provider: 06/11/25 20:59 Source: patient and academic program specialist Mode of arrival: wheelchair Limitations: language barrier History of Present Illness ED Provider: Dr. Lauren Zambrano D.O. HPI narrative: 35-year-old female with a history of sickle cell anemia presenting with generalized body pains, worse in her upper abdomen and left thigh ongoing for the last 24 hours or so. Patient admits that she called her primary care doctor who prescribed her oxycodone for pain but the medication has not been helping. Last dose of oxycodone was around noon time. Has been using Advil as well without relief. Describes pain that will ?take her breath away? but does not feel short of breath. No cough or cold-type symptoms. No reported fever. Denies nausea, vomiting, diarrhea, urinary complaints. Had been feeling well prior to this. Admits her last sickle cell crisis was about 10 months ago. Also admits that she has had to be admitted for several days when she lived in [facility] for her sickle cell crises. Needed blood transfusions at that time as well. Related Data Allergies Allergy/AdvReac Type Severity Reaction Status Date / Time No Known Allergies Allergy Verified 06/11/25 19:01 Review of Systems Review of Systems as per HPI, full review of systems performed and negative but for the above mentioned pertinent positives and negatives. COUNT INCLUDES THE [facility] Past Medical History Attestation statement: The following information was validated with the patient. (Sickle cell anemia) Source: old records reviewed Medical History Sickle cell anemia Social History Social History Alcohol intake: current Alcohol intake frequency: holidays/special occasions only Smoked in Last 30 Days: No Use of substances other than those prescribed or required for medical reasons: No Advance Directives: No Advance Directives Information Provided: No Do you have a plan to hurt others: No Plan Patient : No Physical Exam ED Exam Exam: GENERAL: Ill-Appearing, appears uncomfortable. SKIN: Normal skin color for ethnicity, warm, dry, no rashes noted. HEENT:? Normocephalic, atraumatic, no stridor, dry mucous membranes, dentition intact, EOMI. NECK: Soft, supple, full ROM, midline structures nontender, no step-offs, no deformities, no lymphadenopathy. CHEST: Heart regular tachycardia, no murmurs, symmetric chest rise and fall. PULMONARY: Clear to auscultation bilaterally, diminished at the bases, no labored breathing, no wheezes/rhales/rhonchi. ABDOMINAL: Soft, nondistended, nontender, positive bowel sounds in all quadrants. : Deferred. MUSCULOSKELETAL: Normal tone, full range of motion, no deformities, no peripheral edema, neurovascularly intact distally. NEURO: Alert and oriented x3, CN II through XII intact, equal strength and sensation bilateral upper and lower extremities, no focal neurologic deficits.? PSYCHIATRIC: Flat affect, fluid speech, good eye contact and appropriate demeanor. Vital Signs: Vital Signs - 24 hr 06/11/25 18:55 06/11/25 20:08 06/11/25 23:10 Temperature 98.8 F 98.8 F 98.7 F Pulse Rate 86 85 68 Respiratory Rate 22 H 28 H 18 Blood Pressure 148/76 H 124/58 L 124/56 L Pulse Oximetry 96 99 95 Oxygen Delivery Method Room Air Room Air Room Air BMI result Body Mass Index 25.1 Course Course Course Narrative: 06/11/25 1858 AMBER Egan This is a Rapid Medical Examination (RME) performed by Keren Reeder PA-C in triage. Full HPI, ROS, assessment and treatment plan per primary provider in the Main ED. Hx: 35 yo iranian speaking F hx of sickle cell anemia here for eval of all over body pain and diffuse chest pain since last night. no known sick contacts. denies fever/chills, sob, N/V. PE/vitals: uncomfortable appearing, hunched over in pain Plan: labs, UA, preg Medical Decision Making Medical Decision Making MDM Narrative: 35-year-old female with a history of sickle cell anemia presenting with body aches ongoing for the last 24 hours. Differential diagnosis includes sickle cell crisis, viral syndrome, myalgias, rhabdomyolysis, electrolyte abnormality, anemia, renal dysfunction, dehydration, among many others. Plan for pain control, check reticulocyte count, fluid administration due to decreased p.o. intake. 1:40 a.m. no evidence of acute chest syndrome on chest x-ray. She is feeling improved after Dilaudid but still a 7/10 pain in her arms and legs. Reticulocytes are elevated. Plan for admission to hospitalist for further care and evaluation. Differential Diagnosis Differential Diagnoses: The differential diagnosis associated with the presentation includes (As above) Admission/Observation Consideration of admission/observation: Escalation of care including admission/observation considered Consult Healthcare Provider Management of the patient was discussed with: Hospitalist Lab Data MDM Lab Attestation statement: I reviewed the patient's lab results. 06/11/25 19:18 06/11/25 19:18 Labs: Lab Results 06/11/25 06/12/25 Range/Units 19:18 00:34 WBC 12.6 H (4.8-10.8) X10*3/uL RBC 3.09 L (4.20-5.50) X10*6/uL Hgb 11.1 L (12.0-16.0) g/dl Hct 28.9 L (37.0-47.0) % MCV 93.5 (80.0-98.0) fL MCH 35.9 H (27.0-33.0) pg MCHC 38.4 H (31.0-35.0) g/dl RDW 15.0 (11.0-16.0) % Plt Count 272 (160-400) X10*3/uL MPV 11.3 (9.4-12.3) fL Immature Gran % (Auto) Cancelled Neut % (Auto) Cancelled Lymph % (Auto) Cancelled [place] % (Auto) Cancelled Eos % (Auto) Cancelled Baso % (Auto) Cancelled Lymph # (Auto) Cancelled [place] # (Auto) Cancelled Eos # (Auto) Cancelled Baso # (Auto) Cancelled Abs Immat Gran (auto) Cancelled Absolute Neuts (auto) Cancelled Absolute Nucleated RBC 0.230 H (0.0-0.012) X10*3/uL Nucleated RBC % (auto) 1.8 H (0.0-0.2) /100WBC Neutrophils % (Manual) 62 (45-73) % Band Neutrophils % 0 L (3-5) % Lymphocytes % (Manual) 28 (20-40) % Atypical Lymphs % (Man) 1 (0-6) % Monocytes % (Manual) 8 (2-11) % Basophils % (Manual) 1 (0-2) % Abs Neuts (Manual) 7.8 (2.0-8.3) X10*3/uL Lymphocytes # (Manual) 3.5 (1.2-4.9) X10*3/uL Atyp Lymphs # (Manual) 0.1 x10*3/uL Monocytes # (Manual) 1.0 (0.1-1.2) X10*3/uL Basophils # (Manual) 0.1 (0.0-0.2) X10*3/uL Nucleated RBCs 2 H (0-0) /100WBC Platelet Estimate NORMAL (NORMAL) Plt Morphology Comment NORMAL RBC Morphology NOTED Sickle Cells 2+ (3-5) /OIF Target Cells 1+ (5-14) /OIF Ovalocytes 1+ (5-14) /OIF [place] Cells 1+ (0-2) /OIF Absolute Retic 0.213 H (0.026-0.095) X10*6/uL Percent Retic 6.8 H (0.5-1.8) % Immature Retic Fraction 27.2 H (3.0-15.9) % Retic Hgb Equivalent 34.3 (30.0-35.0) pg Sodium 137 (135-145) mmol/L Potassium 4.0 (3.3-5.1) mmol/L Chloride 108 (96-108) mmol/L Carbon Dioxide 18 L (22-29) mmol/L Anion Gap 15 (12-20) BUN 7 L (9-16) mg/dL Creatinine 0.66 (0.5-1.4) mg/dL Estim Creat Clear Calc 114.6 Estimated GFR > 60 Random Glucose 125 H (60-115) mg/dL Calcium 9.5 (8.4-10.2) mg/dL Magnesium 1.9 (1.6-2.6) mg/dL Total Bilirubin 2.5 H (0.0-1.0) mg/dL AST 56 H (5-31) U/L ALT 35 H (0-31) U/L Alkaline Phosphatase 110 (39-117) U/L Troponin I High Sens < 2.7 (<3.5-17.0) ng/L Total Protein 8.1 H (6.5-8.0) g/dL Albumin 4.6 (3.5-5.0) g/dL Lipase 14 (8-78) U/L Beta HCG, Quant < 2 mIU/mL Urine Color Yellow Urine Appearance Clear Urine pH 8.0 (5.0-9.0) Ur Specific [place] 1.010 (1.005-1.025) Urine Protein Negative (Neg-Trace) mg/dL Urine Glucose (UA) Negative (Negative) mg/dL Urine Ketones Negative (Negative) mg/dL Urine Blood Negative (Negative) Urine Nitrite Negative (Negative) Ur Leukocyte Esterase Trace H (Negative) Urine RBC 0-2 (0-2) /HPF Urine WBC 0-5 (0-5) /HPF Ur Squamous Epith Cells 3-5 (0-2) /HPF Urine Bacteria None Seen (None Seen) Hyaline Casts 0-2 (0-2) /LPF Influenza Type A (PCR) NEGATIVE (Negative) Influenza Type B (PCR) NEGATIVE (Negative) RSV RNA Qual (PCR) NEGATIVE (Negative) SARS-CoV-2 RNA (RT-PCR) NEGATIVE (Negative) Independent Interpretation I performed an independent interpretation of an: EKG Interpretation: My independent interpretation of the ECG reveals normal sinus rhythm with rate of 77, normal axis, normal intervals, no ST elevations or depressions to suggest ischemic changes, no previous for comparison. Radiology Impression Discussion of test interpretation with radiology: I have reviewed the radiologist's reading. Radiologist Impression: 2 view chest x-ray Comparison: None provided Findings: No consolidation or effusion. Normal size heart. No acute fracture. IMPRESSION: 1. No acute findings. This document has been electronically signed by: Rosana Shelton MD on 06/11/2025 23:21:55 Chronic Conditions Patient?s care impacted by: Other (Sickle cell anemia) Medications Administered Generic Name Dose Route Start Last Admin Trade Name Freq PRN Reason Stop Dose Admin Lactated Ringer's 1,000 mls @ 125 mls/hr 06/12/25 02:15 06/12/25 02:27 Lr IVCONT 125 mls/hr .Q8H BOO Administration Discontinued Medications Generic Name Dose Route Start Last Admin Trade Name Freq PRN Reason Stop Dose Admin Hydromorphone HCl 1 mg 06/11/25 21:28 06/11/25 21:38 Hydromorphone Hcl 1 Mg/Ml Syringe IVPUSH 06/11/25 21:29 1 mg ONCE ONE Administration Protocol Hydromorphone HCl 1 mg 06/12/25 01:39 06/12/25 02:01 Hydromorphone Hcl 1 Mg/Ml Syringe IVPUSH 06/12/25 01:40 1 mg ONCE ONE Administration Protocol Lactated Ringer's 1,000 mls @ 999 mls/hr 06/11/25 21:28 06/11/25 22:40 Lr IV 06/11/25 22:28 Infused .Q1H1M ONE Infusion Ondansetron HCl 4 mg 06/11/25 21:28 06/11/25 21:38 Ondansetron Hcl 4 Mg/2 Ml Vial IVPUSH 06/11/25 21:29 4 mg ONCE ONE Administration Discharge Plan Discharge Clinical Impression: Sickle cell pain crisis Patient Disposition: Admitted As Inpatient
--- NOTE | 2025-06-11 19:00 | ECG_ITS ---
Test Reason : chest pain Blood Pressure : */* mmHG Vent. Rate : 77 BPM Atrial Rate : 77 BPM P-R Int : 138 ms QRS Dur : 74 ms QT Int : 372 ms P-R-T Axes : 56 52 46 degrees QTcB Int : 420 ms Normal sinus rhythm Minimal voltage criteria for LVH, may be normal variant ( Sokolow-Lauren ) Borderline ECG No previous ECGs available Referred By: Ashlyn Reeder Electronically Signed By: Samuel Capellan
[2025-06-11 19:24] LABS: Hematocrit 28.9 % (37.0-47.0); Hemoglobin 11.1 g/dl (12.0-16.0); Mean Corpuscular Hemoglobin 35.9 pg (27.0-33.0); Mean Corpuscular Volume 93.5 fL (80.0-98.0); NRBC Abs Auto 0.230 X10*3/uL (0.0-0.012); Platelet Count 272 X10*3/uL (160-400); Red Blood Count 3.09 X10*6/uL (4.20-5.50)
[2025-06-11 19:50] LABS: Alanine Aminotransferase 35 U/L (0-31); Albumin Level 4.6 g/dL (3.5-5.0); Alkaline Phosphatase 110 U/L (39-117); Anion Gap 15 (12-20); Aspartate Amino Transferase 56 U/L (5-31); Blood Urea Nitrogen 7 mg/dL (9-16); Calcium 9.5 mg/dL (8.4-10.2); Carbon Dioxide 18 mmol/L (22-29); Chloride 108 mmol/L (96-108); Creatinine Clr Calc Pharmacy 114.6; Estimated Glomerular Filt Rate > 60; Lipase 14 U/L (8-78); Magnesium 1.9 mg/dL (1.6-2.6); Potassium 4.0 mmol/L (3.3-5.1); Sodium 137 mmol/L (135-145); Total Protein 8.1 g/dL (6.5-8.0); Troponin-I High Sensitivity < 2.7 ng/L (<3.5-17.0)
[2025-06-11 20:00] LABS: Resp Syncy Virus RNA Qual PCR NEGATIVE (Negative); SARS COV2 PCR INHOUSE NEGATIVE (Negative)
[2025-06-11 20:08] VITALS: BP 124/58; PULSE 85; RESP 28; TEMP 37.1; O2SAT 99
[2025-06-11 20:50] LABS: Mean Corpuscular HGB Conc 38.4 g/dl (31.0-35.0); NRBC Pct Auto 1.8 /100WBC (0.0-0.2); WBC ABN SCTR FOR CBC 1
[2025-06-11 21:08] LABS: Atypical Lymphs Percent Manual 1 % (0-6); Basophils Percent Manual 1 % (0-2); Lymphocytes Percent Manual 28 % (20-40); Monocytes Percent Manual 8 % (2-11); Neutrophils Percent Manual 62 % (45-73)
[2025-06-11 21:10] LABS: Burr Cells 1+ (0-2) /OIF; Target Cells 1+ (5-14) /OIF
[2025-06-11 21:11] LABS: Ovalocytes 1+ (5-14) /OIF; Sickle Cells 2+ (3-5) /OIF
[2025-06-11 21:13] LABS: RBC Morphology NOTED
[2025-06-11 21:14] LABS: Atypical Lymph Absolute Manual 0.1 x10*3/uL; Band Neutrophils Percent 0 % (3-5); Basophils Abs Manual 0.1 X10*3/uL (0.0-0.2); Lymphocytes Absolute Manual 3.5 X10*3/uL (1.2-4.9); Monocytes Absolute Manual 1.0 X10*3/uL (0.1-1.2); Neutrophils Absolute Manual 7.8 X10*3/uL (2.0-8.3); White Blood Count 12.6 X10*3/uL (4.8-10.8)
[2025-06-11 21:21] LABS: Baso%MD 0.4 %; Eos%MD 0.1 %; IG%MD 0.8 %; Lymph%MD 17.8 %; Mono%MD 11.9 %; Neut%MD 69.0 %; Reticulocytes Absolute 0.213 X10*6/uL (0.026-0.095)
[2025-06-11 21:26] LABS: RET ABN SCTR 1
[2025-06-11] MEDS: Lactated Ringers 1,000 ML 999 ML IV (21:38)
[2025-06-11 23:10] VITALS: BP 124/56; PULSE 68; RESP 18; TEMP 37.1; O2SAT 95
[2025-06-12 00:54] LABS: Appearance Urine Clear; Glucose Urine UA Negative (Negative); PH 8.0 (5.0-9.0); Specific Gravity - Urine 1.010 (1.005-1.025); UMIC TRIGGER UACC YES
[2025-06-12 02:05] VITALS: BP 105/64; PULSE 70; RESP 18; O2SAT 94
--- NOTE | 2025-06-12 02:06 | P.HPHOSP_ITS ---
History of Present Illness Date of Service: 06/12/25 Chief Complaint: Pain all over This has a 35-year-old female with pertinent history of sickle cell anemia presents to the emergency department for evaluation of extremity and rib pain. Patient states her symptoms started 1 day prior to presentation. She has been having bilateral upper extremity, left lower extremity and rib pain that has been constant, progressive and without any relieving factors. Patient was prescribed oxycodone by her PCP but it is not providing any relief. States she was previously admitted 3 months ago for similar pain crisis. She denies cough, fever, shortness of breath or chest pain. No palpitations, changes in urinary or bowel habits. 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 Review of Systems 2 Constitutional: Constitutional: Reports fatigue, Reports malaise and Reports weakness Cardiovascular: Cardiovascular: Reports no additional cardiovascular complaints Respiratory: Respiratory: Reports no additional respiratory complaints Gastrointestinal: Gastrointestinal: Reports no additional gastrointestinal complaints Genitourinary: Genitourinary: Reports no additional female genitourinary complaints Musculoskeletal: Musculoskeletal: Reports arthralgias Neurologic: Reports weakness Endocrine: Endocrine: Reports fatigue PMFSH Medical History Sickle cell anemia Pertinent family history: No family history of early CAD Social History Alcohol intake: current Alcohol intake frequency: holidays/special occasions only Smoked in Last 30 Days: No Use of substances other than those prescribed or required for medical reasons: No Advance Directives: No Advance Directives Information Provided: No Do you have a plan to hurt others: No Plan Patient : No Meds Allergies Allergy/AdvReac Type Severity Reaction Status Date / Time No Known Allergies Allergy Verified 06/11/25 19:01 Active Medications: Current Medications Acetaminophen (Acetaminophen 325 Mg Tablet) 650 mg PO Q6H PRN PRN Reason: Pain, Mild 1-3,fever,headache Calcium Carbonate (Calcium Carbonate 750 Mg Tab.Chew) 750 mg PO Q4H PRN PRN Reason: Heartburn Hydromorphone HCl (Hydromorphone Hcl 1 Mg/Ml Syringe) 1 mg IVPUSH Q4H PRN; Protocol PRN Reason: Pain, Severe (Pain Scale 7-10) Magnesium Hydroxide (Milk Of Magnesia 30 Ml Oral.Susp) 30 ml PO DAILY PRN PRN Reason: Constipation Melatonin (Melatonin 3 Mg Tablet) 6 mg PO BEDTIME PRN PRN Reason: Insomnia Ondansetron HCl (Ondansetron Hcl 4 Mg/2 Ml Vial) 4 mg IVPUSH Q8H PRN PRN Reason: Nausea and Vomiting Sodium Chloride (0.9 % Sodium Chloride Flush 3 Ml Syringe) 3 ml IVFLUSH QSHIFT [facility] Physical Exam 2 Vital Signs and Narrative: Vital Signs: Last Vital Signs Temp 98.7 F 06/11/25 23:10 Pulse 70 06/12/25 02:05 Resp 18 06/12/25 02:05 BP 105/64 06/12/25 02:05 Pulse Ox 94 06/12/25 02:05 O2 Del Method Room Air 06/12/25 02:05 BMI result Body Mass Index 25.1 Middle-aged female lying in bed in mild distress Neck supple, no JVD Regular rate and rhythm, S1-S2 heard Regular breath sounds bilaterally, no wheezing or crackles appreciated Abdomen soft nontender, no guarding, no rigidity Patient is awake, alert and oriented to self, place, time and person ; no focal motor deficit Psych: Normal mood No pedal edema Results Labs 06/11/25 19:18 06/11/25 19:18 Labs: Laboratory Results - last 24 hr 06/11/25 06/12/25 19:18 00:34 MCV 93.5 MCH 35.9 H MCHC 38.4 H RDW 15.0 Plt Count 272 MPV 11.3 Immature Gran % (Auto) Cancelled Neut % (Auto) Cancelled Lymph % (Auto) Cancelled [place] % (Auto) Cancelled Eos % (Auto) Cancelled Baso % (Auto) Cancelled Lymph # (Auto) Cancelled [place] # (Auto) Cancelled Eos # (Auto) Cancelled Baso # (Auto) Cancelled Abs Immat Gran (auto) Cancelled Absolute Neuts (auto) Cancelled Absolute Nucleated RBC 0.230 H Nucleated RBC % (auto) 1.8 H Neutrophils % (Manual) 62 Band Neutrophils % 0 L Lymphocytes % (Manual) 28 Atypical Lymphs % (Man) 1 Monocytes % (Manual) 8 Basophils % (Manual) 1 Abs Neuts (Manual) 7.8 Lymphocytes # (Manual) 3.5 Atyp Lymphs # (Manual) 0.1 Monocytes # (Manual) 1.0 Basophils # (Manual) 0.1 Nucleated RBCs 2 H Platelet Estimate NORMAL Plt Morphology Comment NORMAL RBC Morphology NOTED Sickle Cells 2+ (3-5) Target Cells 1+ (5-14) Ovalocytes 1+ (5-14) [place] Cells 1+ (0-2) Absolute Retic 0.213 H Percent Retic 6.8 H Immature Retic Fraction 27.2 H Retic Hgb Equivalent 34.3 Anion Gap 15 Estim Creat Clear Calc 114.6 Estimated GFR > 60 Random Glucose 125 H Calcium 9.5 Magnesium 1.9 Total Bilirubin 2.5 H AST 56 H ALT 35 H Alkaline Phosphatase 110 Total Protein 8.1 H Albumin 4.6 Lipase 14 Beta HCG, Quant < 2 Urine Color Yellow Urine Appearance Clear Urine pH 8.0 Ur Specific [place] 1.010 Urine Protein Negative Urine Glucose (UA) Negative Urine Ketones Negative Urine Blood Negative Urine Nitrite Negative Ur Leukocyte Esterase Trace H Urine RBC 0-2 Urine WBC 0-5 Ur Squamous Epith Cells 3-5 Urine Bacteria None Seen Hyaline Casts 0-2 Influenza Type A (PCR) NEGATIVE Influenza Type B (PCR) NEGATIVE RSV RNA Qual (PCR) NEGATIVE SARS-CoV-2 RNA (RT-PCR) NEGATIVE Assessment and Plan (1) Sickle cell pain crisis: Status: Acute Plan This has a 35-year-old female with pertinent history of sickle cell anemia presents to the emergency department for evaluation of extremity and rib pain. #. Acute vaso-occlusive sickle cell pain crisis: Will admit patient with IV opioids p.r.n. for analgesia. Continue IV crystalloid resuscitation. Patient is on folic acid and hydroxyurea. No concern for infection as a precipitating factor. Incentive spirometry to prevent acute chest syndrome. Med rec pending DVT prophylaxis: Lovenox Full code Admit as inpatient and will require two night minimum hospital stay for IV opiates for analgesia, IV crystalloid resuscitation, close monitoring (as above), which is not possible in a lesser acute setting. Quality Stroke Does the patient have a stroke diagnosis?: No VTE Prior VTE?: No VTE Risk Level:: Medical - moderate - high VTE Device Contraindication: Treatment Not Indicated VTE Drug Contraindication: N/A - Med Ordered
[2025-06-12] MEDS: Lactated Ringers 1,000 ML 125 ML IVCONT ×3 (02:27→23:35)
[2025-06-12 05:38] VITALS: BP 124/86; PULSE 83; RESP 16; TEMP 37; O2SAT 99
--- NOTE | 2025-06-12 05:47 | PC.NURSE ---
Pt A&Ox3, primarily Welsh speaking reports all over 10/10 body pain upon arrival. Pt medicated per MAR with + effectiveness. Pt 1 assist to ambulate to BR.
[2025-06-12 06:33] LABS: Anion Gap 12 (12-20); Blood Urea Nitrogen 7 mg/dL (9-16); Calcium 8.8 mg/dL (8.4-10.2); Carbon Dioxide 22 mmol/L (22-29); Chloride 109 mmol/L (96-108); Creatinine Clr Calc Pharmacy 137.4; Estimated Glomerular Filt Rate > 60; Potassium 4.4 mmol/L (3.3-5.1); Sodium 139 mmol/L (135-145)
[2025-06-12 06:44] LABS: Hematocrit 26.2 % (37.0-47.0); Hemoglobin 9.8 g/dl (12.0-16.0); Mean Corpuscular HGB Conc 37.4 g/dl (31.0-35.0); Mean Corpuscular Hemoglobin 35.3 pg (27.0-33.0); Mean Corpuscular Volume 94.2 fL (80.0-98.0); NRBC Abs Auto 0.380 X10*3/uL (0.0-0.012); Platelet Count 245 X10*3/uL (160-400); Red Blood Count 2.78 X10*6/uL (4.20-5.50)
[2025-06-12 06:48] LABS: NRBC Pct Auto 3.1 /100WBC (0.0-0.2); WBC ABN SCTR FOR CBC 1; White Blood Count 12.2 X10*3/uL (4.8-10.8)
[2025-06-12 07:22] LABS: Atypical Lymph Absolute Manual 0.1 x10*3/uL; Atypical Lymphs Percent Manual 1 % (0-6); Band Neutrophils Percent 1 % (3-5); Basophils Abs Manual 0.1 X10*3/uL (0.0-0.2); Basophils Percent Manual 1 % (0-2); Lymphocytes Absolute Manual 3.8 X10*3/uL (1.2-4.9); Lymphocytes Percent Manual 31 % (20-40); Monocytes Absolute Manual 1.5 X10*3/uL (0.1-1.2); Monocytes Percent Manual 12 % (2-11); Neutrophils Absolute Manual 6.7 X10*3/uL (2.0-8.3); Neutrophils Percent Manual 54 % (45-73)
[2025-06-12 07:24] LABS: Large Platelet PRESENT; RBC Morphology NOTED
[2025-06-12 07:25] LABS: Basophilic Stippling 1+ (0-2) /OIF; Polychromasia 2+ (3-5) /OIF; Schistocytes 1+ (0-2) /OIF; Sickle Cells 2+ (3-5) /OIF; Target Cells 1+ (5-14) /OIF
--- NOTE | 2025-06-12 09:50 | PHA.MEDREC ---
Pharmacy Consult ? Medication Reconciliation Pharmacy has completed the medication reconciliation. Spoke to patient via treasury associate. Per patient, she is taking hydroxyurea 1000 mg daily (instead of the prescribed 1500 mg daily) due to the 1500 mg dose makes her eat too much . Patient confirmed she is taking oxycodone 5 mg q8h prn pain and she no longer takes loratadine nor minocycline (finished the course for acne). She is taking folic acid 1 mg daily. Last dose of medications was friday06/10/25.
--- NOTE | 2025-06-12 10:30 | PC.NURSE ---
pt medicated per 06/26 pain. plan for continued pain mgmt and IV fluids
[2025-06-12] MEDS: oxyCODONE HCl Immed Release 5 MG TABLET PO ×2 (14:10→23:37)
[2025-06-12 15:05] VITALS: BP 144/78; PULSE 74; RESP 16; TEMP 37.3; O2SAT 100
[2025-06-12 15:48] VITALS: BMI 21.8
[2025-06-12 15:56] VITALS: BP 132/65; PULSE 68; RESP 18; TEMP 37.2; O2SAT 98
--- NOTE | 2025-06-12 15:57 | PM.EVENT ---
Event Note Date of Service: 06/12/25 Event Note: 35-year-old female with pertinent history of sickle cell anemia presents to the emergency department for evaluation of extremity and rib pain. Patient was admitted for vaso-occlusive sickle cell crisis: Started on hydration, IV pain medications -she says she is still has significant pain but somewhat better than yesterday. Physical exam and assessment and plan as per H and P today this morning. Continue as above. Time Spent With Patient Time: Total time managing care of this patient today ____ minutes.
[2025-06-12 19:33] VITALS: BP 105/63; PULSE 69; RESP 16; TEMP 37; O2SAT 98
[2025-06-12 23:34] VITALS: BP 129/65; PULSE 71; RESP 18; TEMP 36.4; O2SAT 100
[2025-06-13 07:29] VITALS: BP 119/57; PULSE 95; RESP 18; TEMP 37.4; O2SAT 99
[2025-06-13] MEDS: oxyCODONE HCl Immed Release 5 MG TABLET PO ×2 (07:53→11:38)
[2025-06-13] MEDS: Lactated Ringers 1,000 ML 125 ML IVCONT (07:54)
--- NOTE | 2025-06-13 09:43 | MHC.CM.PN ---
pt lives with daughter she reports having no previous services pt has her own ride home dc plan home no services
--- NOTE | 2025-06-13 11:35 | PM.DS ---
DS: Providers Provider Date of Service: 06/13/25 Date of admission: 06/12/25 01:51 Date of discharge: 06/13/25 Primary care physician: Unknown Physician Attending physician on discharge: Abbey Coats Discharging clinician: Abbey Coats DS: Diagnosis Discharge Diagnosis (1) Sickle cell pain crisis: Status: Acute DS: Summary Hospital Course Hospital Course: HPI:35-year-old female with pertinent history of sickle cell anemia presents to the emergency department for evaluation of extremity and rib pain. Patient states her symptoms started 1 day prior to presentation. She has been having bilateral upper extremity, left lower extremity and rib pain that has been constant, progressive and without any relieving factors. Patient was prescribed oxycodone by her PCP but it is not providing any relief. States she was previously admitted 3 months ago for similar pain crisis. She denies cough, fever, shortness of breath or chest pain. No palpitations, changes in urinary or bowel habits. Patient is Citizen Of [place] speaking and history obtained with the help of neon molder In the emergency department, patient was given IV opiates and resuscitated with IV crystalloids. Hospital course and plan: Patient was admitted for sickle cell crisis-given hydration, IV pain medication-improved with supportive care. Will be going home with the p.o. oxycodone limited supply given. Stool laxative also given. Monitor CBC, BMP, LFT outpatient(chronically elevated) with the PCP. Above management discussed with the patient detail length she understand and in agreement with the plan, time spent 40 minute, all question answered. Staff was present during conversation. Time Attestation Total time managing care of this patient today: 40 mintues. Discharge Coordination Time (in mins): 40 minute Quality: Safe Use of Opioids Does Pt have an Active Cancer Diagnosis on the Problem List?: No Quality: Stroke Does the patient have a stroke diagnosis?: No Physical Exam Exam: Exam: Appearance: Alert.? Oriented X3.?? Eyes: Pupils equal, round and reactive to light.? Sclera nonicteric.?s. cvs: rrr, [id number] . res: clear to auscultation ,no rhonchii or wheezing abd: no rebound or guarding ,nt, bs present. ext pulses present , no cyanosis . neuro: axo3 , nonfocal. Vital Signs: Vital Signs: Last Vital Signs Temp 99.4 F 06/13/25 07:29 Pulse 95 06/13/25 07:29 Resp 18 06/13/25 07:29 BP 119/57 L 06/13/25 07:29 Pulse Ox 99 06/13/25 07:29 O2 Del Method Room Air 06/13/25 07:29 BMI result Body Mass Index 21.8 DS: Data Data Completed and Pending Labs on day of discharge: Laboratory Results - last 24 hr 06/11/25 19:18 Smear Path Review SEE NOTE Imaging Chest x-ray: My impression: cxr: 1. No acute findings. Discharge Plan Discharge Anticipated Discharge Date/Time: 06/13/25 11:28 Patient Disposition: Home, Self-Care Discharge Diagnosis: Sickle cell anemia Referrals: Physician,Unknown J [Primary Care Provider, Medical] - 1 Week Discharge Medications: New acetaminophen 325 mg Tablet 650 mg PO Q6H PRN (Reason: Pain, Mild 1-3,Fever,Headache) Qty: 10 0RF oxycodone 5 mg tablet 5 mg PO BID PRN (Reason: pain) Qty: 10 0RF Rx Instructions: Partial Fill upon patient request. docusate sodium [Colace] 100 mg capsule 100 mg PO DAILY PRN (Reason: constipation) Qty: 30 0RF polyethylene glycol 3350 [Miralax] 17 gram/dose powder 17 g PO DAILY PRN (Reason: constipation) Qty: 119 0RF Continued hydroxyurea 500 mg capsule 1,000 mg PO DAILY oxycodone 5 mg tablet 5 mg PO Q8H PRN (Reason: severe pain) folic acid 1 mg Tablet 1 mg PO DAILY Discharge Orders: Discharge Order (Routine); Ordered 06/13/25 Ordered By: Abbey Coats Diet: Advance to usual diet Activity on Discharge: As tolerated Stand Alone Forms: Patient Portal Discharge page Print Language: Citizen Of [place] Care Plan Goals: Patient was admitted for sickle cell crisis-given hydration, IV pain medication-improved with supportive care. Will be going home with the p.o. oxycodone limited supply given. Stool laxative also given. Monitor CBC, BMP, LFT outpatient(chronically elevated) with the PCP. Health Concerns: As above. Plan of Treatment: As above. Assessment: As above. Patient Instructions: Sickle Cell Crisis (DC) Discharge Date/Time: 06/13/25 13:26
[2025-06-13 12:29] VITALS: BP 132/77; PULSE 103; RESP 18; TEMP 37.1; O2SAT 100
--- NOTE | 2025-06-13 13:18 | MHC.CM.PN ---
PT DCD HOME SELF CARE VIA [facility]
== END 2025-06-13 13:26 | disposition home or self-care (01) | DRG 662 ==
LOC: HO.ED 06-12 01:47 → HO.EDOVER 06-12 02:37 → HO.S3 06-12 14:59
PROVIDERS: Physician Assistant Medical; Admitting Provider Student in an Organized Health Care Education/Training Program; Emergency Provider Emergency Medicine; Visit Provider Internal Medicine
DX: D57.00 Hb-SS disease with crisis, unspecified (principal); Z20.822 Contact with and (suspected) exposure to COVID-19; Z79.899 Other long term (current) drug therapy
CPT/HCPCS: 36415; 71046; 80048; 80053; 81001; 83690; 83735; 84484; 84702; 85007; 85025; 85027; 85045; 87637; 93005; 99285; J1171; J1650; J2405; J7120

== ENCOUNTER → 2025-06-11 19:00 | Outpatient (BNV) | payer MEDICAID, SELFPAY | PROVIDERS: Admitting Provider Student in an Organized Health Care Education/Training Program; Emergency Provider Emergency Medicine; Visit Provider Internal Medicine Cardiovascular Disease | DX: R07.9 Chest pain, unspecified (principal) | CPT/HCPCS: 93010 ==

== ENCOUNTER → 2025-06-11 20:05 | Outpatient (BNV) | payer MEDICAID, SELFPAY | PROVIDERS: Emergency Provider Emergency Medicine; Visit Provider Student in an Organized Health Care Education/Training Program | DX: D57.00 Hb-SS disease with crisis, unspecified (principal) | CPT/HCPCS: 99222; 99239; 99499 ==

== ENCOUNTER → 2025-06-11 22:14 | Outpatient (BNV) | payer MEDICAID, SELFPAY | PROVIDERS: Emergency Provider Emergency Medicine; Visit Provider Radiology Diagnostic Radiology | DX: D57.00 Hb-SS disease with crisis, unspecified (principal) | CPT/HCPCS: 71046 ==